=== PATIENT | female | born 1970 | race Caucasian/White ===

== ENCOUNTER 2016-08-20 21:55 | Emergency (ER) | payer OTHER ==
[2016-08-20 23:30] LABS: Hematocrit 42 % (35-47); Hemoglobin 14.2 g/dl (12.0-16.0); Mean Corpuscular HGB Conc 34 g/dl (31-36); Mean Corpuscular Hemoglobin 33 pg (27-31); Mean Corpuscular Volume 96 fL (80-97); Mean Platelet Volume 8 um3 (7.4-10.4); Red Blood Count 4.35 10^6/ul (4.0-5.4); Red Cell Distribution Width 14 % (10.5-15); White Blood Count 11.2 10^3/ul (3.5-10.8)
[2016-08-20 23:44] LABS: ALT 27 U/L (7-52); AST 31 U/L (13-39); Albumin 4.4 g/dL (3.2-5.2); Alkaline Phosphatase 77 U/L (34-104); Anion Gap 10 mmol/L (2-11); BUN/Creatinine Ratio 15.9 (8-20); Blood Urea Nitrogen 10 mg/dL (6-24); CO2 Carbon Dioxide 22 mmol/L (22-32); Calcium 9.2 mg/dL (8.6-10.3); Chloride 109 mmol/L (101-111); EGFR African American 130.8 (>60); EGFR Non-African American 101.7 (>60); Globulin 3.3 g/dL (2-4); Glucose 126 mg/dL (70-100); Potassium 3.5 mmol/L (3.5-5.0); Sodium 141 mmol/L (133-145); Total Protein 7.7 g/dL (6.4-8.9)
[2016-08-21 00:05] LABS: Acetaminophen < 15 mcg/mL; Alcohol 354 mg/dL (<10); Salicylate < 2.50 mg/dL (<30)
[2016-08-21 00:15] LABS: TSH (Thyroid Stimulating Horm) 1.19 mcIU/mL (0.34-5.60)
[2016-08-21] MEDS ORDERED: Acetaminophen TAB* 325 MG PO ONE (01:51)
[2016-08-21] MEDS ORDERED: Acetaminophen TAB* 325 MG ONE (01:53)
--- NOTE | 2016-08-21 05:50 | ED ---
Romelia Benitez Salem, scribed for Jarred Tian MD on 08/20/16 at 2221 . Adult Trauma - HPI Summary HPI Summary: Patient is a 46 y/o female who presents to the ED per EMS s/p a fall. Pt does not remember falling or how much EtOH she consumed. Per EMS, she hit the left side of her occipital when she fell. She denies a headache or taking any blood thinners. She has no other complaints. - History of Current Complaint Chief Complaint: EDSubstanceAbuse Stated Complaint: Time Seen by Provider: 08/20/16 22:11 Hx Obtained From: Patient, EMS Mechanism of Injury: Fall Onset/Duration: Started Hours Ago, Traumatic, Still Present Onset Severity: Moderate Current Severity: Moderate Pain Intensity: 0 Pain Scale Used: 0-10 Numeric Location: Head - Back, left side. Aggravating Factor(s): Nothing Alleviating Factor(s): Nothing Associated Signs & Symptoms: Positive: Other: - No headache. Injury to back of head. - Allergy/Home Medications Allergies/Adverse Reactions: Allergies Allergy/AdvReac Type Severity Reaction Status Date / Time Sulfacetamide [From Sulf-10] Allergy Severe Swelling Verified 03/19/15 08:50 PMH/Surg Hx/FS Hx/Imm Hx Endocrine/Hematology History: Denies: Hx Diabetes, Hx Systemic Lupus Erythematosus Cardiovascular History: Denies: Hx Congestive Heart Failure, Hx Hypertension History: Denies: Hx Dialysis, Hx Renal Disease Musculoskeletal History: Denies: Hx Rheumatoid Arthritis - Cancer History Hx Chemotherapy: No - Surgical History Surgery Procedure, Year, and Place: 3 c-sections Infectious Disease History: No Infectious Disease History: Denies: History Other Infectious Disease, Traveled Outside the [place] in Last 30 Days - Family History Known Family History: Negative: Cardiac Disease, Hypertension - Social History Alcohol Use: None Alcohol Amount: arrived ETOH- patient unsure of amount hat she drank today Hx Substance Use: No Substance Use Type: Reports: None Hx Tobacco Use: No Smoking Status (MU): Never Smoked Tobacco Review of Systems Negative: Fever Neurological: Other - No headache. Injury to back of head. Positive: Depressed, Other - SI. All Other Systems Reviewed And Are Negative: Yes Physical Exam Triage Information Reviewed: Yes Vital Signs On Initial Exam: Initial Vitals Temp Pulse Resp BP Pulse Ox 99.6 F 116 18 145/100 95 08/20/16 21:57 08/20/16 21:57 08/20/16 21:57 08/20/16 21:57 08/20/16 21:57 Vital Signs Reviewed: Yes Appearance: Positive: Well-Appearing, No Pain Distress Skin: Positive: Warm, Skin Color Reflects Adequate Perfusion, Dry Eyes: Positive: EOMI, JESSY Neck: Positive: Supple, Nontender Respiratory/Lung Sounds: Positive: Clear to Auscultation, Breath Sounds Present Cardiovascular: Positive: RRR Abdomen Description: Positive: Nontender, Soft Musculoskeletal: Positive: Normal, Strength/ROM Intact Neurological: Positive: Normal, Sensory/Motor Intact, Alert, Oriented to Person Place, Time, Other - Blood to left occipital, 1.5cm laceration. Not actively bleeding. Psychiatric: Positive: Other - Appears intoxicated. - Bishop Coma Scale Coma Scale Total: 15 Procedures - Laceration/Wound Repair 1 Location: head - 1.5cm laceration left occipital. Description: Linear Length, Depth and Shape: 1.5cm. Laceration/Wound Explored: Other - Cleaned with Shur-Clens. Not actively bleeding. Suture Type: Other - DERMABOND. Diagnostics - Vital Signs Vital Signs Temp Pulse Resp BP Pulse Ox 08/20/16 21:57 99.6 F 116 18 145/100 95 - Laboratory Lab Results: Lab Results 08/20/16 08/20/16 Range/Units 23:21 23:21 WBC 11.2 H (3.5-10.8) 10^3/ul RBC 4.35 (4.0-5.4) 10^6/ul Hgb 14.2 (12.0-16.0) g/dl Hct 42 (35-47) % MCV 96 (80-97) fL MCH 33 H (27-31) pg MCHC 34 (31-36) g/dl RDW 14 (10.5-15) % Plt Count 294 (150-450) 10^3/ul MPV 8 (7.4-10.4) um3 Neut % (Auto) 69.5 (38-83) % Lymph % (Auto) 18.4 L (25-47) % Beltrami % (Auto) 9.5 H (1-9) % Eos % (Auto) 1.5 (0-6) % Baso % (Auto) 1.1 (0-2) % Absolute Neuts (auto) 7.8 H (1.5-7.7) 10^3/ul Absolute Lymphs (auto) 2.1 (1.0-4.8) 10^3/ul Absolute Monos (auto) 1.1 H (0-0.8) 10^3/ul Absolute Eos (auto) 0.2 (0-0.6) 10^3/ul Absolute Basos (auto) 0.1 (0-0.2) 10^3/ul Absolute Nucleated RBC 0.01 10^3/ul Nucleated RBC % 0.1 Sodium 141 (133-145) mmol/L Potassium 3.5 (3.5-5.0) mmol/L Chloride 109 (101-111) mmol/L Carbon Dioxide 22 (22-32) mmol/L Anion Gap 10 (2-11) mmol/L BUN 10 (6-24) mg/dL Creatinine 0.63 (0.51-0.95) mg/dL Est GFR ( Amer) 130.8 (>60) Est GFR (Non-Af Amer) 101.7 (>60) BUN/Creatinine Ratio 15.9 (8-20) Glucose 126 H (70-100) mg/dL Calcium 9.2 (8.6-10.3) mg/dL Total Bilirubin 0.20 (0.2-1.0) mg/dL AST 31 (13-39) U/L ALT 27 (7-52) U/L Alkaline Phosphatase 77 (34-104) U/L Total Protein 7.7 (6.4-8.9) g/dL Albumin 4.4 (3.2-5.2) g/dL Globulin 3.3 (2-4) g/dL Albumin/Globulin Ratio 1.3 (1-3) TSH 1.19 (0.34-5.60) mcIU/mL Beta HCG, Quant < 0.60 mIU/mL Salicylates < 2.50 (<30) mg/dL Acetaminophen < 15 mcg/mL Serum Alcohol 354 H (<10) mg/dL Result Diagrams: 08/20/16 23:21 08/20/16 23:21 Lab Statement: Any lab studies that have been ordered have been reviewed, and results considered in the medical decision making process. - CT BRAIN CT Interpretation Completed By: Radiologist - IMPRESSION: Normal head. CERVICAL SPINE CT Interpretation Completed By: Radiologist - IMPRESSION: Normal cervical spine. Re-Evaluation - Re-Evaluation First Eval Re-Evaluation Time: 22:40 Adult Trauma Course/Dx - Course Course Of Treatment: STABLE IN ED. NO CRITICAL CARE TIME. Assessment/Plan: MHE PENDING AT SHIFT CHANGE. - Diagnoses Provider Diagnoses: Head injury, Scalp laceration, Alcohol intoxication, Mental health problem Discharge - Discharge Plan Condition: Stable Disposition: OTHER Discharge Disposition Comment: C The documentation as recorded by the Romelia salgado Salem accurately reflects the service I personally performed and the decisions made by me, Jarred Tian MD.
[2016-08-21] MEDS ORDERED: Ibuprofen TAB* 600 MG PO ONE (06:17)
--- NOTE | 2016-08-21 08:11 | RAD ---
INDICATION: Head injury. COMPARISON: There are no prior studies available for comparison. TECHNIQUE: Contiguous axial sections of the brain were obtained from the skull base to the vertex without contrast. FINDINGS: The ventricles, cisterns and sulci are within normal limits. No significant focal abnormality or mass effect is seen. There is no evidence for hemorrhage. No significant focal osseous abnormality is seen. The visualized portion of the paranasal sinuses and mastoid air cells appear clear. IMPRESSION: NO EVIDENCE FOR ACUTE INTRACRANIAL ABNORMALITY.
--- NOTE | 2016-08-21 08:20 | RAD ---
INDICATION: Head injury. Neck injury. Fall. EtOH. COMPARISON: None TECHNIQUE: Noncontrast axial source images was performed from the skull base to the thoracic inlet. Coronal and and sagittal reformatted images were generated. FINDINGS: Vertebrae: There is no fracture or acute focal bony lesion. Alignment: The craniocervical junction appears normal. The cervical vertebrae are normally aligned. Central Canal: There are no significant CT abnormalities of the central canal or foramina. MR imaging is a more sensitive method to evaluate the canal and foramina. Intervertebral disc spaces: The disc spaces are maintained. Brain: The visualized brain appears unremarkable. Soft tissues: The visualized soft tissue elements of the neck are unremarkable. The prevertebral soft tissues appear normal. The lung apices are clear. Other: There is deformity and mild sclerosis about the left mandibular condyle. IMPRESSION: NO ACUTE CERVICAL SPINE FINDINGS.
[2016-08-21 11:41] VITALS: BP 187/85
--- NOTE | 2016-08-21 12:00 | ED ---
Vane Benitez Matthew, scribed for Neymar Delong MD on 08/21/16 at 0805 . Progress - Progress Note Progress Note: The patient is a sign out from Dr. Tian. A 46 y/o female presents to the ED for alcohol intoxication and MHE. The patient states that she currently feels ok. The patient is in stable condition and will be discharged home per the recommendation of Dr. Schumacher. Re-Evaluation - Re-Evaluation First Eval Re-Evaluation Time: 22:40 Course/Dx - Course Course Of Treatment: The patient was assessed by Dr. Schumacher and recommended to follow-up with outpatient treatment. - Diagnoses Provider Diagnoses: Adjustment disorder, Alcohol intoxication The documentation as recorded by the Vane salgado Matthew accurately reflects the service I personally performed and the decisions made by , Neymar Delong MD.
== END 2016-08-21 11:30 ==
LOC: ED 21:55
DX: S01.91XA Laceration without foreign body of unspecified part of head, initial encounter (principal); S09.90XA Unspecified injury of head, initial encounter; F32.9 Major depressive disorder, single episode, unspecified; F10.129 Alcohol abuse with intoxication, unspecified; W19.XXXA Unspecified fall, initial encounter; Y93.9 Activity, unspecified; Y92.9 Unspecified place or not applicable; Y99.9 Unspecified external cause status
CPT/HCPCS: 36415; 70450; 72125; 80053; 80320; 80329; 84443; 84702; 85025; 99283; A9270-GY; G0480

== ENCOUNTER 2017-10-31 19:57 | Emergency (ER) | payer BC, OTHER ==
[2017-10-31 20:09] VITALS: BP 153/102
--- NOTE | 2017-10-31 20:19 | UC ---
General HPI - HPI Summary HPI Summary: 47 yo female c/o pain in torso, not getting better for approx the last 3 weeks. Reports that she fell down a couple flights of stairs. Denies any other etiology of the trauma, denies altercation. Does not report loc; however, she reports that she had been drinking alcohol at the time of injury. Hurts to take a deep breath. Since last 2 nights, has not been able to sleep d/t pain. No vomit, no report of po challenges. Denies pelvic pain, neck pain, or ext pain. Does have R shoulder pain. Also notes + hernia above belly button has been hurting more. This as been present a couple months. - History of Current Complaint Chief Complaint: UCAbdominalPain Stated Complaint: RIB COMPLAINT Hx Obtained From: Patient Hx Last Menstrual Period: one month ago Pain Intensity: 8 - Allergy/Home Medications Allergies/Adverse Reactions: Allergies Allergy/AdvReac Type Severity Reaction Status Date / Time Sulfa (Sulfonamide Allergy Swelling Verified 10/31/17 20:10 Antibiotics) Home Medications: Home Medications Escitalopram Oxalate [Lexapro 10 mg] 1 tab PO DAILY 10/31/17 [History Confirmed 10/31/17] Losartan Potassium [Cozaar] 1 tab PO DAILY 10/31/17 [History Confirmed 10/31/17] clonazePAM TAB(*) [Klonopin TAB(*)] 1 tab PO DAILY 10/31/17 [History Confirmed 10/31/17] PMH/Surg Hx/FS Hx/Imm Hx Previously Healthy: No - see hpi - Surgical History Surgical History: None Surgery Procedure, Year, and Place: 3 c-sections - Family History Known Family History: Negative: Cardiac Disease, Hypertension - Social History Alcohol Use: Occasionally Alcohol Amount: arrived ETOH- patient unsure of amount hat she drank today Substance Use Type: None Smoking Status (MU): Current Every Day Smoker Review of Systems Constitutional: Negative Skin: Bruising Eyes: Negative ENT: Negative Respiratory: Other - see hpi Cardiovascular: Other - see hpi Genitourinary: Negative Motor: Other - see hpi Neurovascular: Other - see hpi Musculoskeletal: Other: - see hpi Neurological: Other - see hpi Psychological: Anxious Is Patient Immunocompromised?: Yes - does drink alcohol All Other Systems Reviewed And Are Negative: Yes Physical Exam Triage Information Reviewed: Yes Appearance: Well-Nourished, Other: - looks uncomfortable, yaneth with examination. Feels better standing up, hurts to lie down Vital Signs: Initial Vital Signs Temp 97.7 F 10/31/17 20:03 Pulse 112 10/31/17 20:03 Resp 18 10/31/17 20:03 BP 153/102 10/31/17 20:03 Pulse Ox 97 10/31/17 20:03 Vital Signs Reviewed: Yes Eye Exam: Normal - grossly normal, atraumatic ENT Exam: Normal Neck exam: Normal Neck: Positive: Supple, Nontender Respiratory Exam: Other - Breath sounds clear, equal. Hurts L and R chest to take deep breath. Cardiovascular Exam: Other - HR and BP noted. Nondiaphoretic. Abdominal Exam: Other - Left lat chest wall tenderness to pressure, mid and inf lat chest wall. No crepitus. Right lat chest wall mid - lat tender to pressure. No crepitus. There are scattered eccymoses along chest wall. R post back with large eccymosis purplish yellow, very tender to pressure. CVA region, difficult to appreciate d/t other areas of tenderness. Tender RUQ, without Rebound, + volunt guarding. Abd wall -just above umbilicus - + ventral hernia, tender to pressure, but soft. Pelvic Exam: Positive: Other - pelvis stable, nontender to pressure Musculoskeletal Exam: Other - see above abd / chest Neurological Exam: Normal - grossly intact Psychological Exam: Normal - appropriately tearful. Conversing easily and appropriately in full sentances. Skin Exam: Other - several ecchymoses as noted above. Course/Dx - Course Course Of Treatment: Ms. Alejandre clearly is uncomfortable. Concern for internal injury (in addition to possible rib / chest injury is high. D/w with Ms. Alejandre recommendation for evaluation in Emergency Department. While understandably tearfuly, she carefully considered, and will go to the ED. Declines EMS, and wishes to drive herself. I spoke with [facility], at time of pt's departure. Ms. Alejandre did not want to stay for d/c instructions. Questions as posed answered to the best of my ability. - Differential Dx - Multi-Symptom Provider Diagnoses: Multiple trauma s/p fall down stairs Discharge - Sign-Out/Discharge Documenting (check all that apply): Patient Departure - Discharge Plan Condition: Guarded Disposition: HOME-RECOMMEND TO ED Referrals: Arlene Aceves NP [Primary Care Provider] - - Billing Disposition and Condition Condition: GUARDED Disposition: Home-Recommend to ED
== END 2017-10-31 21:00 | disposition home health service (06) ==
LOC: UCEAST 19:57
DX: S39.91XA Unspecified injury of abdomen, initial encounter (principal); W10.9XXA Fall (on) (from) unspecified stairs and steps, initial encounter; Y93.9 Activity, unspecified; Y99.9 Unspecified external cause status
CPT/HCPCS: 99212; G0463

== ENCOUNTER 2017-10-31 21:17 | Emergency (ER) | payer BC ==
--- NOTE | 2017-10-31 22:41 | ED ---
Adult Trauma - HPI Summary HPI Summary: Patient presents from [facility] with 2-3 week old injuries resulting in worsening of pain. She reports she fell down some stairs at the [facility] about 2-3 weeks ago while drinking alcohol. She does not recall the details of the event however she did have pain on her right side after and continues to have this pain. Reports getting worse and 7 better. She has pain with rolling over and trying to sit up as well as worse with this coughing, sneezing, bearing down. She was sent from convenient care to rule out more than rib fracture as she has right upper quadrant abdominal pain along with impressive bruising along her abdomen and flank. She denies fatigue, lightheadedness, chest pain, shortness of breath, difficulty breathing other than pain with deep breath. She does admit she bruises easily but does not bleed easily (i.e. denies epistaxis, gum bleeding, hematuria, hematochezia, excessive bleeding with cuts). She admits to taking ibuprofen quite regularly. She denies known history of bleeding disorder and no family history of bleeding disorders. She does admit her periods are gotten heavier over the past couple of years- follows with [facility]. Denies nausea, vomiting, diarrhea. Report she does drink ETOH QOD however may have revealed to Dr. Jalloh she drinks more regularly. Also makes a comment about her liver "not being good". Later in the visit reports she drinks more than she should. When asked, she reports she does not feel she will go into withdrawal while waiting here for testing. Denies tremors and reports of hallucinations. She is concerned about her injuries and does not like to go to the doctor. - History of Current Complaint Chief Complaint: EDChestWallPain Stated Complaint: RIB PAIN Time Seen by Provider: 10/31/17 21:51 Hx Obtained From: Patient Hx Last Menstrual Period: one month ago Pain Intensity: 7 - Allergy/Home Medications Allergies/Adverse Reactions: Allergies Allergy/AdvReac Type Severity Reaction Status Date / Time Sulfa (Sulfonamide Allergy Swelling Verified 10/31/17 20:10 Antibiotics) Home Medications: Home Medications Tramadol HCl 50 mg PO Q8HR PRN 10/31/17 [History Confirmed 10/31/17] PMH/Surg Hx/FS Hx/Imm Hx Previously Healthy: Yes Endocrine/Hematology History: Denies: Hx Anticoagulant Therapy, Hx Blood Disorders - bruises easily, Hx Diabetes, Hx Systemic Lupus Erythematosus, Hx Anemia, Hx Unexplained Bleeding Cardiovascular History: Reports: Hx Hypertension Denies: Hx Congestive Heart Failure GI History: Reports: Other GI Disorders - ventral hernia Denies: Hx Cirrhosis History: Denies: Hx Dialysis, Hx Renal Disease Musculoskeletal History: Denies: Hx Rheumatoid Arthritis Psychiatric History: Denies: Hx Eating Disorder, Hx of Violent Episodes Against Others - Cancer History Hx Chemotherapy: No - Surgical History Surgery Procedure, Year, and Place: 3 c-sections - Immunization History Date of Tetanus Vaccine: unk Date of Influenza Vaccine: none Infectious Disease History: No Infectious Disease History: Denies: History Other Infectious Disease, Traveled Outside the [place] in Last 30 Days - Family History Known Family History: Negative: Cardiac Disease, Hypertension - Social History 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 Alcohol Use: Weekly - pt reports "QOD" 10/31/2017 Alcohol Amount: arrived ETOH - patient unsure of amount hat she drank today ( date unknown) Hx Substance Use: No Substance Use Type: Reports: None Hx Tobacco Use: Yes Smoking Status (MU): Light Every Day Tobacco Smoker Review of Systems Constitutional: Negative Negative: Fatigue Eyes: Negative Negative: Photophobia, Blurred Vision, Diplopia Negative: Epistaxis Cardiovascular: Other - Rt side rib pain Negative: Palpitations, Chest Pain Respiratory: Negative, Other - pain on Right side w/ deep breathes Negative: Shortness Of Breath, Cough Positive: Abdominal Pain. Negative: Vomiting, Diarrhea, Nausea Negative: hematuria Positive: Arthralgia, Myalgia, Decreased ROM Positive: Bruising Neurological: Negative Positive: Anxious All Other Systems Reviewed And Are Negative: Yes Physical Exam Triage Information Reviewed: Yes Vital Signs On Initial Exam: Initial Vitals Temp Pulse Resp BP Pulse Ox 97.9 F 93 20 130/92 98 10/31/17 21:21 10/31/17 21:21 10/31/17 21:21 10/31/17 21:21 10/31/17 21:21 Vital Signs Reviewed: Yes Appearance: Positive: Well-Appearing, Well-Nourished - does not smell/appear intoxicated at present, Pain Distress - appears comfortable at rest, but in pain w/ transitioning positions Skin: Positive: Warm, Skin Color Reflects Adequate Perfusion, Dry - purpuric ecchymosis over RT AB, Rt flank (TTP in the areas) Head/Face: Positive: Normal Head/Face Inspection Eyes: Positive: Normal, EOMI, JESSY ENT: Positive: Normal ENT inspection, Hearing grossly normal, Pharynx normal - mucosa moist Neck: Positive: Supple, Nontender Respiratory/Lung Sounds: Positive: Breath Sounds Present. Negative: Subcutaneous Emphysema, Tracheal Deviation, Unable to speak in full sentences, Fatigue Cardiovascular: Positive: Normal, Pulses are Symmetrical in both Upper and Lower Extremities, S1, S2. Negative: Leg Edema Left, Leg Edema Right - scant, diffuse bruising/abrasions over LE's - pt reports "I'm clumsy" Abdomen Description: Positive: Soft, Other: - RUQ TTP; mildly protruding ventral hernia, just superior to umbilius - TTP Bowel Sounds: Positive: Present Musculoskeletal: Positive: Strength/ROM Intact - LE's and UE's however has Rt side pain w/ Rt UE reaching Neurological: Positive: Normal, Sensory/Motor Intact, Alert, Oriented to Person Place, Time, CN Intact II-III Psychiatric: Positive: Normal - concerned and mildly anxious but polite, cooperative Diagnostics - Vital Signs Vital Signs Temp Pulse Resp BP Pulse Ox 10/31/17 21:21 97.9 F 93 20 130/92 98 - Laboratory Result Diagrams: 10/31/17 22:31 10/31/17 22:31 Lab Statement: Any lab studies that have been ordered have been reviewed, and results considered in the medical decision making process. Adult Trauma Course/Dx - Course Course Of Treatment: Pt's labs do not reveal coagulopathy. Vitals stable. CT of chest/ab/pelvis ordered to assess for pathology including but not limited to rib fx but also organ contusion, hematoma, hemorrhage, etc. She reports she could not wait for her CT results - had to get home to dog. Signed out AMA - aware of dangers of leaving w/o results - witnessed by Kendra Malin RN. Pt also declined lidoderm patch for pain prior to d/c. Reports she will continue to ice bruised/painful areas. Asked that we call her w/ results once they're available. - Diagnoses Provider Diagnoses: Right flank pain, RUQ pain, Rib pain on right side, Purpura, Fall down stairs Discharge - Sign-Out/Discharge Documenting (check all that apply): Patient Departure - Discharge Plan Condition: Stable Disposition: AGAINST MEDICAL ADVICE - Billing Disposition and Condition Condition: STABLE Disposition: Against Medical Advice
[2017-10-31 22:48] LABS: INR 0.85 (0.77-1.02)
[2017-10-31 23:01] LABS: EGFR Non-African American 135.4 (>60)
[2017-10-31] MEDS ORDERED: Iohexol 300* (CONTRAST) 10 ML SDV IV ONE (23:03)
[2017-10-31 23:22] LABS: Hematocrit 41 % (35-47); Hemoglobin 14.3 g/dl (12.0-16.0); Mean Corpuscular HGB Conc 35 g/dl (31-36); Mean Corpuscular Hemoglobin 38 pg (27-31); Mean Corpuscular Volume 108 fL (80-97); Mean Platelet Volume 7.8 um3 (7.4-10.4); Platelet Count 305 10^3/ul (150-450); Red Blood Count 3.77 10^6/ul (4.00-5.40); Red Cell Distribution Width 15 % (10.5-15); White Blood Count 8.9 10^3/ul (3.5-10.8)
[2017-10-31 23:38] LABS: ABS Basophils 0.1 10^3/ul (0-0.2); ABS Eosinophils 0.1 10^3/ul (0-0.6); ABS Monocytes 0.8 10^3/ul (0-0.8); ABS Neutrophils 5.9 10^3/ul (1.5-7.7); ABS Nucleated RBC 0 10^3/ul; Eosinophil % 1.4 % (0-6); Lymphocyte % 22.6 % (25-47); Nucleated Red Blood Cells % 0
[2017-11-01] MEDS ORDERED: Lidocaine PATCH 5%* 1 PATCH TRANSDERM ONE (01:00)
[2017-11-01 01:04] VITALS: BP 0/0
--- NOTE | 2017-11-01 02:41 | RAD ---
INDICATION: Trauma right rib and flank pain. COMPARISON: Comparison is made with a prior CT March 16, 2014. TECHNIQUE: A CT scan of the chest, abdomen and pelvis was performed with intravenous and without oral contrast following intravenous injection of 100 ml of Omnipaque 300 nonionic contrast. Contiguous axial sections were obtained from the lung apices through the symphysis pubis. Images were reconstructed in the coronal and sagittal planes. FINDINGS: There is a 3 mm pulmonary nodule present in the right upper lobe best seen on image #20. There is a 3 mm pulmonary nodule in the right lower lobe on image 44 which is seen on the prior CT study. Is unchanged. There is minimal atelectasis in the left lower lobe. The lungs are otherwise clear. No pleural effusion or pneumothorax is seen. No mediastinal hemorrhage is seen. No enlarged mediastinal or hilar lymph nodes are noted. The heart is within normal limits in size. No pericardial effusion is present. The thoracic aorta is normal in caliber and demonstrates homogeneous contrast opacification. The liver and spleen are normal in size. The liver is decreased in attenuation consistent with fatty infiltration. No significant focal abnormality is seen. No calcified gallstones are noted. The pancreas appears to be within normal limits. The kidneys and adrenal glands are normal in size. There is no evidence for hydronephrosis. No significant focal renal abnormality is seen. The aorta is normal in caliber and demonstrates homogeneous contrast opacification. No retroperitoneal hemorrhage is seen. No enlarged retroperitoneal lymph nodes are noted. The stomach, small and large bowel appear nondistended. The appendix appears normal. There is mild descending and sigmoid diverticulosis without evidence for diverticulitis. There is a periumbilical hernia containing fat and a small amount of free fluid with interstitial stranding. The uterus is mildly enlarged and heterogeneous suggestive of fibroid infiltration. Note is made of nabothian cysts. There is a 3.9 cm left ovarian cyst. There was a 2.1 cm left ovarian cyst on the prior study. No free intraperitoneal air or fluid is seen. There are fractures of the right lateral eighth and ninth ribs age indeterminate. IMPRESSION: 1. NO EVIDENCE FOR INTRA-ABDOMINAL INJURY. 2. THERE ARE NONDISPLACED FRACTURES OF THE RIGHT LATERAL EIGHTH AND NINTH RIBS, AGE INDETERMINATE. RECOMMEND CORRELATION FOR POINT TENDERNESS. 3. 3 MM RIGHT UPPER LOBE PULMONARY NODULE. RECOMMEND A FOLLOW-UP CT OF THE CHEST WITHOUT CONTRAST IN ONE YEAR 'S TIME IF THE PATIENT HAS RISK FACTORS. 4. HEPATIC STEATOSIS. 5. PERIUMBILICAL HERNIA CONTAINING FAT WITH INTERSTITIAL STRANDING AND FLUID SUGGESTIVE OF INFLAMMATORY CHANGE. 6. 3.9 CM LEFT OVARIAN CYST. RECOMMEND A FOLLOW-UP OUTPATIENT PELVIC ULTRASOUND.
== END 2017-11-01 01:02 | disposition left against medical advice (07) ==
LOC: ED 21:17
DX: R10.84 Generalized abdominal pain (principal); R07.81 Pleurodynia; D69.2 Other nonthrombocytopenic purpura; W10.9XXA Fall (on) (from) unspecified stairs and steps, initial encounter; Y92.9 Unspecified place or not applicable; N28.89 Other specified disorders of kidney and ureter; N83.201 Unspecified ovarian cyst, right side; R91.1 Solitary pulmonary nodule; K42.9 Umbilical hernia without obstruction or gangrene
CPT/HCPCS: 36415; 71260; 74177; 80053; 82550; 83605; 85025; 85610; 86850; 86900; 86901; 99283; Q9967

== ENCOUNTER 2017-12-18 08:53 | Day surgery (SDC) | payer BC, OTHER ==
[~2017-12-18 08:53] MED LIST: Buffered Lidocaine 0.9% SYRIN* 5 ML/SYR SYRINGE INTRADERM ONE
[2017-12-18] MEDS ORDERED: ceFAZolin 2 GM in NS PREMIX(*) 2 GM/100 ML BAG IVPB ONE (09:05)
[2017-12-18] MEDS ORDERED: HYDROmorphone INJ* 0.5 MG/0.5 ML SYRINGE ONE ×2 (09:33→10:11)
[2017-12-18] MEDS ORDERED: Famotidine IV* 10 MG/ML 2 ML (20 mg) ONE (09:33)
[2017-12-18] MEDS ORDERED: fentaNYL* 50 MCG/ML 2 ML VIAL (100 MCG VIAL) ONE ×2 (10:21→12:03)
[2017-12-18] MEDS ORDERED: Midazolam* 1 MG/ML 2 ML VIAL (2 MG) ONE (10:21)
[2017-12-18] MEDS ORDERED: Bupivacaine 0.5% SDV PF* 30ML VIAL ONE (11:01)
[2017-12-18] MEDS ORDERED: Scopolamine 1.5 mg* PATCH ONE (11:14)
[2017-12-18] MEDS ORDERED: Propofol* 10 MG/ML 20 ML BTL IV PUSH ONE (11:31)
[2017-12-18] MEDS ORDERED: Ondansetron INJ* 2 MG/ML VIAL ONE (11:31)
[2017-12-18] MEDS ORDERED: Lidocaine 2% PF * 5 ML VIAL ONE (11:31)
[2017-12-18] MEDS ORDERED: Dexamethasone IV* 4 MG/ML 1 ML (4 MG) ONE (11:31)
[2017-12-18] MEDS ORDERED: fentaNYL* 50 MCG/ML 2 ML VIAL (100 MCG VIAL) IV PRN (12:10)
[2017-12-18] MEDS ORDERED: Metoclopramide IV* 5 MG/ML 2 ML VIAL IV PRN (12:10)
[2017-12-18] MEDS ORDERED: Naloxone* 0.4 MG/ML 1 ML VIAL IV PRN (12:10)
[2017-12-18] MEDS ORDERED: PROCHLORPERAZINE INJ 5 MG/ML 2 ML VIAL IV PRN (12:10)
--- NOTE | 2017-12-18 13:01 | OP ---
Operative Report - Blank - Operative Report Date of Operation: 12/18/17 Note: PATIENT: Maddi Alejandre DATE OF : 1970 DATE OF SURGERY: 12/18/2017 SURGEON: Octaviano Shepherd MD FAMILY PROTECTION SPECIALIST: NAYAN Espinoza, whos assistance was necessary for positioning, retraction, help with instrumentation, and closure. ANESTHESIOLOGIST: Dr. West PREOPERATIVE DIAGNOSIS: Right bimalleolar ankle fracture POSTOPERATIVE DIAGNOSIS: Right bimalleolar ankle fracture OPERATION: 1. Right bimalleolar ankle fracture open reduction and internal fixation. 2. Stress views performed by surgeon utilizing fluoroscopy under anesthesia. ANESTHESIA: GETA IMPLANTS: Arthrex ankle fracture set plate and screws TOURNIQUET TIME: One hour with a well-padded thigh tourniquet at 250mmHg SPECIMENS: none ESTIMATED BLOOD LOSS: minimal COMPLICATIONS: none STATUS: Stable from the operating room to the recovery room and then home. INDICATIONS FOR PROCEDURE: Maddi sustained a right displaced bimalleolar ankle fracture. Both operative and non operative treatment alternatives were reviewed. Further, the nature and risks of surgery were reviewed in careful detail, in the office as well as the pre-operative holding area. Our discussions regarding the risks of surgery included, but were not limited to, infection, wound problems, nerve injury, neuroma, RSD, persistent symptoms, blood clot, nonunion, malunion, post- traumatic arthritis, hardware failure, failure of the surgery, and even the remote chance of catastrophic complication, including loss of limb. DESCRIPTION OF PROCEDURE: The patient was seen in the preoperative holding unit and informed written consent was obtained. The appropriate extremity was marked. The patient was then brought to the operating room and carefully positioned on the operating room table. Anesthesia was induced. All bony prominences were padded with great care. A well-padded thigh tourniquet was placed. A chlorhexidine based pre- scrub was performed followed by a chloraprep prep and drape in standard sterile fashion. A surgical safety pause was then conducted in which we confirmed the appropriate patient, extremity, planned procedure, availability of equipment, indication and administration of prophylactic antibiotics, and DVT prophylaxis in the form of a compression boot on the non-surgical extremity. I began with Esmarch exsanguination of the limb and inflated the tourniquet. I then utilized a laterally based incision overlying the distal fibula. Great care was taken to protect the superficial peroneal nerve, which was not visualized within the field of view. I dissected down through the soft tissue layers to expose the distal fibula. I then exposed the fracture. Fracture hematoma was removed. She had surprisingly poor bone quality given her age. There was a fair amount of comminution, making direct reduction difficult. I placed an anatomic Arthrex plate laterally and then confirmed the reduction and the position of the plate fluoroscopically. I placed screws to hold the plate to the bone. I made an approximately 4cm incision over the medial malleolus. The fracture was exposed and hematoma was removed. Reduction of the medial malleolar fracture was obtained with a pointed reduction clamp. I placed guidewires for 4.0 mm cannulated screws. I confirmed the position of the guidewires fluoroscopically. I then overdrilled the wires and placed two partially threaded 4.0 mm cannulated screws. I then removed the guidewires and obtained fluoroscopic images. At this point, I performed a stress fluoroscopic examination. I utilized a Cotton test, as well as an external rotation stress test, to evaluate the distal tib-fib syndesmosis. There was no instability appreciated through the syndesmosis. At this point, we irrigated copiously and then closed in layers meticulously utilizing 3-0 Monocryl for the deep and subdermal layers and shira for the skin. A sterile dressing was then applied followed by a splint with the ankle in a neutral position. The patient was then awakened from anesthesia and transferred to the recovery room in stable condition. There were no complications. All needle and sponge counts were correct at the end of the case. ATTESTATION: I attest I was present and scrubbed and performed the critical portions of the procedure myself. POSTOPERATIVE PLAN: The postop plan is for [id number] for an anticipated duration of 6 weeks. Follow-up will be in 2 weeks. At that time we will likely transition into a [id number]-[id number] aircast boot.
[2017-12-18] MEDS ORDERED: HYDROmorphone INJ1* 1 MG/ML SYRINGE ONE (13:09)
[2017-12-18] MEDS ORDERED: Acetaminophen TAB* 325 MG ONE (13:10)
[2017-12-18] MEDS: HYDROmorphone INJ1* 1 MG/ML SYRINGE IV PRN ×5 (13:11→13:37)
[2017-12-18] MEDS ORDERED: Gabapentin CAP(*) 300 MG ONE (13:18)
[2017-12-18] MEDS ORDERED: Ketorolac INJ* 30 MG/ML 1 ML VIAL ONE (13:18)
[2017-12-18] MEDS ORDERED: Diazepam TAB(NF) 2 MG TAB - use 2.5 of 5 mg tab autosub PO ONE (14:00)
[2017-12-18 14:44] VITALS: BP 134/84
== END 2017-12-18 15:11 | disposition home or self-care (01) ==
LOC: OR 08:53
PROVIDERS: ATTEND Orthopaedic Surgery
DX: S82.841A Displaced bimalleolar fracture of right lower leg, initial encounter for closed fracture (principal); V43.52XA Car driver injured in collision with other type car in traffic accident, initial encounter; Y92.410 Unspecified street and highway as the place of occurrence of the external cause; I10 Essential (primary) hypertension; Z72.0 Tobacco use; F41.8 Other specified anxiety disorders; J30.2 Other seasonal allergic rhinitis; G89.18 Other acute postprocedural pain
CPT/HCPCS: 81025; A9270-GY; C1713; C1776; J0690; J1100; J1170; J1885; J2250; J2405; J2704; J3010

== ENCOUNTER 2018-06-15 08:11 | Day surgery (SDC) | payer BC, OTHER ==
[~2018-06-15 08:11] MED LIST changes: +Acetaminophen TAB* 325 MG PO ONE; -Buffered Lidocaine 0.9% SYRIN* 5 ML/SYR SYRINGE INTRADERM ONE; +Buffered Lidocaine 1% SYRIN* 1 ML/SYRINGE INTRADERM ONE; +Gabapentin CAP(*) 300 MG PO ONE; +Lactated Ringers 1000 ML Bag* 1,000 ML IV SCH
[2018-06-15] MEDS ORDERED: ceFAZolin 1 GM in Dextrose (*) 1 GM/50 ML BAG IVPB ONE ×2 (08:36→11:10)
[2018-06-15] MEDS ORDERED: Gabapentin CAP(*) 300 MG ONE (08:36)
[2018-06-15] MEDS ORDERED: Acetaminophen TAB* 325 MG ONE (08:36)
[2018-06-15] MEDS ORDERED: fentaNYL* 50 MCG/ML 2 ML VIAL (100 MCG VIAL) ONE ×2 (10:18→13:48)
[2018-06-15] MEDS ORDERED: Midazolam* 1 MG/ML 2 ML VIAL (2 MG) ONE ×2 (10:18→10:23)
[2018-06-15] MEDS ORDERED: diPHENhydraMINE IV* 50 MG/ML 1 ml VIAL (BENADRYL) IV PRN (10:26)
[2018-06-15] MEDS ORDERED: fentaNYL* 50 MCG/ML 2 ML VIAL (100 MCG VIAL) IV PRN (10:26)
[2018-06-15] MEDS ORDERED: DiMENhydriNATE IV* 50 MG/ML VIAL IV PUSH PRN (10:26)
[2018-06-15] MEDS ORDERED: Scopolamine 1.5 mg* PATCH TRANSDERM PRN (10:26)
[2018-06-15] MEDS ORDERED: PROCHLORPERAZINE INJ 5 MG/ML 2 ML VIAL IV PRN (10:26)
[2018-06-15] MEDS ORDERED: Ondansetron INJ* 2 MG/ML VIAL IV PRN (10:26)
[2018-06-15] MEDS ORDERED: Naloxone* 0.4 MG/ML 1 ML VIAL IV PRN (10:26)
[2018-06-15] MEDS ORDERED: Acetaminophen TAB* 325 MG PO PRN (10:26)
[2018-06-15] MEDS ORDERED: HYDROcodone/ACETAMIN 5-325 MG* 1 TAB PO PRN ×2 (10:26)
[2018-06-15] MEDS ORDERED: Levalbuterol 0.63MG/3ML NEB* UNIT OF USE INH PRN (10:26)
[2018-06-15] MEDS ORDERED: Bupivacaine 0.5% W/EPI SDV* 30 ML VIAL ONE (10:52)
[2018-06-15] MEDS ORDERED: Bupivacaine 0.5%* 50 ML VIAL ONE (10:54)
[2018-06-15] MEDS ORDERED: Famotidine IV* 10 MG/ML 2 ML (20 mg) ONE (11:07)
[2018-06-15] MEDS ORDERED: Ondansetron INJ* 2 MG/ML VIAL ONE (11:17)
[2018-06-15] MEDS ORDERED: Propofol* 10 MG/ML 20 ML BTL ONE (11:17)
[2018-06-15] MEDS ORDERED: Dexamethasone IV* 4 MG/ML 1 ML (4 MG) ONE (11:17)
[2018-06-15] MEDS ORDERED: Cisatracurium* 2 MG/ML MDV 5 ML ONE (11:17)
[2018-06-15] MEDS ORDERED: Phenylephrine INJ* 10 MG/ML 1 ML VIAL (10 MG) ONE (11:34)
[2018-06-15] MEDS ORDERED: Ketorolac INJ* 30 MG/ML 1 ML VIAL ONE (12:39)
[2018-06-15] MEDS ORDERED: HYDROcodone/ACETAMIN 5-325 MG* 1 TAB ONE (13:37)
[2018-06-15] MEDS: fentaNYL* 50 MCG/ML 2 ML VIAL (100 MCG VIAL) IV PRN ×2 (13:49→14:04)
[2018-06-15 14:05] VITALS: BP 150/103
--- NOTE | 2018-06-15 15:59 | OP ---
DATE OF OPERATION: 06/15/18 [facility] DATE OF : [birth year] SERVICE: General Surgery. ATTENDING SURGEON: Antonia Jefferson MD CAVING GUIDE: Rai Lopez MD. ANESTHESIOLOGIST: Dr. Weston Marr. ANESTHESIA: General endotracheal anesthesia. PRE-OP DIAGNOSIS: Ventral hernia. POST-OP DIAGNOSIS: Ventral hernia. OPERATIVE PROCEDURE: Laparoscopic ventral hernia repair with mesh. ESTIMATED BLOOD LOSS: Minimal. INDICATIONS FOR SURGERY: Ms. Alejandre is a very pleasant 48-year-old female with a history of a ventral hernia that was becoming increasingly symptomatic and therefore she wished to have an elective repair. She understood the risks, benefits, and alternatives of the procedure and she wished to proceed. DESCRIPTION OF PROCEDURE: The patient was brought back to the operating room and placed on the operating room table in a supine position. Sequential compression devices were placed on the bilateral lower extremities for DVT prophylaxis. Antibiotic with Ancef was administered prior to incision. General endotracheal anesthesia was induced, a Palomo catheter was placed, her left arm was tucked, and her abdomen was prepped and draped in the normal sterile fashion. Prior to beginning the procedure, a time-out was performed verifying the patient's name, MR number, and the procedure to be performed. 0.25% Marcaine was infiltrated into the left upper quadrant and a small incision was made in order to allow entry of a 5-mm Optiview trocar. The abdomen was entered under direct visualization using this Optiview technique. Once the abdomen was entered, insufflation was obtained to 15 mmHg and general inspection of the abdominal cavity showed that there was no apparent injury that had been made upon entry. Next, under direct visualization, two additional 5-mm trocars were placed - one in the left mid abdomen and one in the left lower abdomen. Attention was turned towards the ventral hernia. There was clearly some omentum that was stuck within a small approximately 1.5 to 2 cm ventral hernia just above the umbilicus. The omentum and fat was reduced entirely from the hernia using gentle manual pressure on the skin to ensure that all of the content was reduced. Once this was done, attention was also turned towards the small umbilical hernia that the patient had, which was likely an incisional hernia from her prior laparoscopic surgery. There was very minimal fascial defect and there were no contents that were within this small hernia which appeared to be more like attenuated fascia. After this was done, the falciform was divided using LigaSure in order to facilitate placement of the intra-abdominal mesh and once this was done, the hernia itself was measured externally. A needle was placed at the superior and inferior and the lateral extents of the defects which measured, while the abdomen was insufflated , approximately 9 cm x 3 cm. Given that this was likely a larger than actual defect itself, which involved the the two defects (both the umbilical which was very small and actual ventral hernia that was symptomatic), the decision was made then to desufflate slightly and then a 10.2 x 15.2 cm oval mesh was selected. This was a Ventralight ST mesh with an echo-positioning system. This mesh was then moistened in saline and placed into the abdominal cavity under direct visualization. A suture passer was used to grasp the purple positioning cord and was pulled out through the abdominal wall, which allowed for the mesh to be nicely positioned against the abdominal wall. Once this was done, the balloon system was insufflated and the mesh was positioned appropriately so that the long axis was placed in the cephalad and caudad position. Once it was positioned correctly, a tacker was used to circumferentially tack the mesh to the abdominal wall and then the balloon portion of the positioning mesh was then deflated and removed. The balloon was inspected and was noted to be completely intact. Next, an inner row of tacks were placed circumferentially around the mesh and the mesh was noted to be very well approximated against the abdominal wall with no defects through it and it was flat. Final inspection of the abdominal cavity showed that there was again no apparent injury that had been made and then a suture passer was then used to close the left upper quadrant incision, which had been upsized to a 12 mm trocar in order to allow placement of the mesh. An 0-Vicryl suture was used in a [id number] fashion to close this defect. Next, desufflation was obtained and the skin was closed using interrupted 4-0 Monocryl suture. Sterile dressing was then placed. Her Palomo catheter was removed. Her general anesthesia was reversed and she was taken to the PACU in stable condition. At the end of the case, all counts were correct and I was present during the entirety of the case. [id number]/[facility] #: [id number] [facility] CENTERRobyn
[2018-06-18] MEDS ORDERED: Scopolamine PATCH Remove* 1 NOTE MISC PATCH OFF ONE (10:26)
== END 2018-06-15 14:41 | disposition home or self-care (01) ==
LOC: OR 08:11
PROVIDERS: ATTEND Surgery
DX: K43.9 Ventral hernia without obstruction or gangrene (principal); I10 Essential (primary) hypertension; Z72.0 Tobacco use; F41.9 Anxiety disorder, unspecified
CPT/HCPCS: 81025; A9270-GY; C1781; J0690; J1100; J1885; J2250; J2405; J2704; J3010